=== PATIENT | female | born 1950 | race Caucasian/White ===

== ENCOUNTER 2020-09-03 13:15 | Emergency (ER) | payer MEDICARE, BC ==
[~2020-09-03] VITALS: Ht 172.7 cm; Wt 94.0 kg
[2020-09-03 13:21] VITALS: BP 156/89
--- NOTE | 2020-09-03 13:59 | NUR ---
PT TO XR AT THIS TIME.
== END 2020-09-03 14:45 | disposition home or self-care (01) ==
LOC: ED 14:38
DX: S63.502A Unspecified sprain of left wrist, initial encounter (principal); S60.212A Contusion of left wrist, initial encounter; S50.12XA Contusion of left forearm, initial encounter; Z86.73 Personal history of transient ischemic attack (TIA), and cerebral infarction without residual deficits; W01.0XXA Fall on same level from slipping, tripping and stumbling without subsequent striking against object, initial encounter; Y93.89 Activity, other specified; Y92.009 Unspecified place in unspecified non-institutional (private) residence as the place of occurrence of the external cause; Y99.8 Other external cause status
CPT/HCPCS: 99284